=== PATIENT | female | born 1950 | race Caucasian/White ===

== ENCOUNTER → 2023-09-20 09:02 | Outpatient (REF) | payer MEDICARE, OTHER, SELFPAY ==
[2023-09-20 10:28] LABS: Hematocrit 42.1 % (37.0-47.0); Hemoglobin 13.9 g/dL (12.0-16.0); Mean Platelet Volume 10.1 fL (7.4-10.4); Platelet Count 266 10^3/uL (130-400); Red Blood Cell Count 4.48 10^6/uL (4.20-5.40); Red Cell Dist. Width 12.4 % (11.5-14.5)
[2023-09-20 11:17] LABS: Blood Urea Nitrogen 22 mg/dl (7-17); Calcium 9.3 mg/dl (8.4-10.2); Carbon Dioxide 27 mmol/L (22-30); Chloride 104 mmol/L (98-107); Glucose 99 mg/dl (70-99); Potassium 4.6 mmol/L (3.5-5.1); Sodium 139 mmol/L (135-145); eGFR > 60.00
[2023-09-20 11:43] VITALS: BMI 38.5
== END ==
LOC: SDSPAT 09:02
PROVIDERS: ATTENDING PHYSICIAN Obstetrics & Gynecology; FAMILY PHYSICIAN Family Medicine; OTHER PHYSICIAN Specialist
DX: Z01.818 Encounter for other preprocedural examination (principal)
CPT/HCPCS: 36415; 80048; 85027; 86850; 86900; 86901; 93005

== ENCOUNTER 2023-09-25 06:32 | Day surgery (SDC) | payer MEDICARE, OTHER, SELFPAY ==
--- NOTE | 2023-09-24 08:23 | PTCARENOTE ---
Abn ECG seen by PCP and addressed by PCP clearance.
[2023-09-25] VITALS (13 sets, daily range): BP systolic 104–136; BP diastolic 55–89; BMI 39.1
[2023-09-25] MEDS: HEPARIN 5000 UNITS SC (12:50)
[2023-09-25] MEDS: Pyridium 200 MG PO (12:50)
[2023-09-25] MEDS: NORMOSOL-R 1000 IV (12:50)
[2023-09-25] MEDS: TRANSDERM-SCOP 1 PATCH TRANSDERM (12:53)
[2023-09-25] MEDS: VANCOCIN 300 ML IV (12:57)
[2023-09-25] MEDS: VANCOCIN 300 MG IV (12:57)
[2023-09-25] MEDS: ZOFRAN 4 MG IV (17:32)
--- NOTE | 2023-09-25 17:36 | OR.RPT ---
Operative Report
Operative Report
PREOPERATIVE DIAGNOSIS:
1.���� Pelvic organ prolapse
2.���� Stress incontinence
POSTOPERATIVE DIAGNOSIS:
1.���� Pelvic organ prolapse
2.���� Stress incontinence
PROCEDURE:
1. Robotic assisted laparoscopic total hysterectomy and bilateral salpingo-oophrectomy
2. Robotic assisted laparoscopic sacrocolpopexy
3. Single incision midurethral sling
4. Cystoscopy
SURGEON: Vincenzo Hazel MD
ASSISTANTS: BONNIE Allen
EBL: 20 cc
COMPLICATIONS: None
SPECIMENS: Uterus, cervix, bilateral ovaries and tubes
INDICATIONS: Patient has symptomatic pelvic organ prolapse and urinary incontinence. Options were reviewed with the patient, who decided to proceed with surgery.� Preoperative urodynamics revealed stress urinary incontinence with urethral
hypermobility.� The risks of surgery were reviewed, including the risk of bleeding, infection, damage to surrounding organs including bowel, bladder, ureter, urethra, nerves, blood vessels, mesh complications, post-operative urinary retention and
urinary incontinence. The risk of anesthesia was also reviewed.� The patient expressed understanding and informed consent was obtained.
FINDINGS: Laparoscopic findings include adnexa were within normal limits bilaterally. Cystoscopic findings include normal bladder mucosa, no cystotomy, suture, mesh, lacerations or lesions.� Normal efflux of urine from bilateral ureteral openings.
Normal urethra.
DESCRIPTION OF PROCEDURE:
On day of surgery, patient properly identified in preoperative waiting area and informed consent of planned procedure again reviewed.� She was then taken to the operating room.� Sequential compression devices were placed on bilateral lower
extremities and 5,000 units of subcutaneous heparin were given for DVT prophylaxis.� General anesthesia was induced without difficulty.�� Vancomycin 1.5gm and Flagyl 500mg IV was given for antibiotic prophylaxis.� The patient was placed in dorsal
lithotomy position with Simone stirrups and prepped and draped in the usual sterile fashion.� Surgical time-out was performed to review patient and procedure.
Attention was turned to the patient�s vagina.� Cedillo catheter was placed to gravity. The uterine manipulator was placed.� The anterior lip of the cervix was grasped with a tenaculum, placed on gentle traction, and uterus sounded.�� The uterine
manipulator was adjusted to the measurement taken by the sound and placed through the internal cervical os into the uterus.� The balloon was filled with 4 cc of air.�
Attention turned to the patient�s abdomen.� The patient was confirmed to have an OG tube in place on suction for gastric decompression.� A midline 8 mm transverse midline supraumbilical incision was made with the scalpel approximately 20 cm above
the symphysis.� The Veress needle was passed through this incision while tenting up the abdominal wall.� Intraperitoneal placement was confirmed by opening insufflation pressure of 0 mmHg.� The abdomen was insufflated to a pressure of 12 mmHg with
approximately 3L CO2 gas to obtain adequate pneumoperitoneum.� A 8 mm robotic trocar was advanced through this incision and abdominal entry confirmed.� No injuries noted.� Next, the remaining port sites were marked, injected superficially with local
anesthetic, and skin incised with the scalpel.� These sites included two 8 mm robotic ports on the patient's left and one 8mm robotic and one 8 mm accessory port on the patient's right.� All ports were placed under direct visualization without
difficulty.� The patient was placed in [place] position and abdomen and pelvis inspected and noted to be free of significant adhesive disease.� The robot was docked using the left side-docking technique.� The robotic arms were attached to the
ports and instruments placed without difficulty.�
The robotic assisted laparoscopic total hysterectomy and bilateral salpingo-oophrectomy were performed as follows.� Starting at the patient�s left, the round ligament, uteroovarian pedicle, and fallopian tube were cauterized with bipolar cautery,
and then transected with monopolar scissors.� The anterior leaf of the broad ligament was opened, and the dissection was carried inferiorly and anterior around the cervix to create the bladder flap.� This process was repeated on the right in a
similar fashion.� The vesico-uterine peritoneum was further opened and the bladder dissected down off the anterior cervix and vagina with sharp and blunt dissection.� Returning to the left, the posterior leaf of the broad ligament was dissected
laterally down the side of the uterus.� The uterine arteries were skeletonized, cauterized, and transected.� Further sequential bites were taken down the side of the uterus to reach the level of the external cervical os.� This process was repeated
on the right.� The bladder was further dissected anteriorly off the vagina.� The colpotomy was made circumferentially around the ring of the manipulator. The uterus and cervix were removed from the vagina. Attention was turned to the patient�s
adnexa and the bilateral salpingo-oophrectomy was performed as follows.� The left IP ligament was identified and isolated with the ureter noted well below the level of planned dissection.� The IP ligament was cauterized with bipolar electrocautery
and transected with monopolar scissors.� The left tube and ovary were then dissected free in sequential bites and then placed removed through the vagina.� The same procedure was done for the patient�s right tube and ovary.� The vagina was closed
with #2-0 Vicryl in figure of eight sutures. A second layer of #2-0 V-Lock was used to ensure adequate closure. Hemostasis was maintained
The robotic assisted laparoscopic abdominal sacrocolpopexy was performed as follows:� The bladder was dissected anteriorly off the vagina to allow for mesh placement.� The posterior peritoneum was entered sharply and the rectum dissected posteriorly
off the vagina.� The posterior peritoneum was continued to be opened through the cul-de-sac.� Next the sacrum was exposed after retracting bowel gently away.� The peritoneum overlying the sacral was tented up and entered sharply.� The presacral
space area was opened op and dissection carried down to expose and clear off the anterior longitudinal ligament at the level of the sacrum.� This peritoneum incision was carried inferiorly to join the peritoneal incision of the posterior
cul-de-sac.� Hemostasis was noted.��� The polypropylene Y mesh was introduced through the accessory port and positioned over the cervix.� The anterior arm of the Y mesh was sutured to the anterior cervix and vagina with approximately six #2-0 Gortex
sutures.� The posterior arm of the Y mesh was sutured to the posterior cervix and vagina with nine #2-0 Gortex sutures.� The tail of the Y mesh was attached to the anterior longitudinal ligament at the level of the sacrum with 3 #2-0 Gortex
sutures.� The vagina was noted to be elevated but not under tension.� Hemostasis was noted.� The excess mesh was trimmed and removed.� The peritoneum was reapproximated to cover the mesh.� The pelvis was reexamined and hemostasis was noted
throughout.�
The robot was undocked. CO2 was released and ports removed under direct visualization.� Skin was closed with 4-0 Biosyn for the subcuticular layer.� All abdominal incisions were then closed with skin glue.�
The Solyx midurethral sling was performed as follows: Two Allis clamps were placed on the anterior vaginal mucosa at the level of the bladder neck and 1 cm from the urethral meatus. This area was infiltrated with 1% lidocaine with 1:100,000
epinephrine. A midline incision was made between the two Allis clamps using a scalpel. The vaginal mucosa was dissected from the underlying pubocervical fascia using Metzenbaum, out to the level of the inferior pubic rami bilaterally. The Solyx
trocar was placed in the right vaginal dissection below the inferior pubic rami, passed behind and around the pubic bone into the obturator muscle in standard fashion. This was repeated on the left side. Adequate tension was confirmed. Cedillo
catheter was removed and Cystoscopy was performed. Findings were as above. The cystoscope was removed and Cedillo catheter replaced. The vaginal incision was closed with 2-0 Vicryl in a running continuous fashion.
Anesthesia was reversed without difficulty.� The patient tolerated the procedure well, was awakened and sent to the PACU in stable condition. All counts were correct x 2. I, Dr. Hazel was scrubbed and present throughout the procedure
[2023-09-25] MEDS: COMPAZINE 5 MG IV (17:44)
== END 2023-09-25 20:17 | disposition home or self-care (01) ==
LOC: SDS 06:32
PROVIDERS: ATTENDING PHYSICIAN Obstetrics & Gynecology; FAMILY PHYSICIAN Family Medicine
DX: N81.3 Complete uterovaginal prolapse (principal); N39.3 Stress incontinence (female) (male); N84.0 Polyp of corpus uteri; D25.9 Leiomyoma of uterus, unspecified
CPT/HCPCS: 57425; 58571; 57288; 88305; 86900; 86901; C1763; C1771